=== PATIENT | male | born 1950 | race Caucasian/White ===

== ENCOUNTER 2020-07-19 15:07 | Emergency (ER) | payer SELFPAY ==
[~2020-07-19 15:07] MED LIST: AMLODIPINE BESYL5 MG PO; ANUSOL-HC25 MG PR; ASPIRIN EC81 MG PO; CLOPIDOGREL75 MG PO; FLOMAX 0.4 MG0.4 MG PO; LIPITOR80 MG PO; MOTION SICKNESS25 M1 PO; PROTONIX40 MG PO; STOOL SOFTENER240 MG PO
[2020-08-16] MEDS ORDERED: PLAVIX75 MG PO (10:31)
[2020-08-16] MEDS ORDERED: LIPITOR80 MG PO (10:32)
[2020-08-16] MEDS ORDERED: NORVASC10 MG PO (10:32)
[2020-08-16] MEDS ORDERED: ASPIRIN EC81 MG PO (10:32)
[2020-08-16] MEDS ORDERED: LEVOTHYROXINE50 MC1 PO (10:33)
[2020-08-16] MEDS ORDERED: LOVENOX INJ (10:36)
== END 2020-07-19 17:55 | disposition home or self-care (01) ==
LOC: ER1 15:07
DX: U07.1 COVID-19 (principal); N39.0 Urinary tract infection, site not specified
CPT/HCPCS: 99283

== ENCOUNTER 2020-07-21 08:14 | Emergency (ER) | payer SELFPAY ==
[2020-08-16] MEDS ORDERED: PLAVIX75 MG PO (10:31)
[2020-08-16] MEDS ORDERED: ASPIRIN EC81 MG PO (10:32)
[2020-08-16] MEDS ORDERED: LIPITOR80 MG PO (10:32)
[2020-08-16] MEDS ORDERED: NORVASC10 MG PO (10:32)
[2020-08-16] MEDS ORDERED: LEVOTHYROXINE50 MC1 PO (10:33)
[2020-08-16] MEDS ORDERED: LOVENOX INJ (10:36)
== END 2020-07-21 09:19 | disposition home or self-care (01) ==
LOC: ER1 08:14
DX: R33.9 Retention of urine, unspecified (principal); N21.0 Calculus in bladder
CPT/HCPCS: 51702; 99282

== ENCOUNTER → 2020-08-16 | Outpatient (CLI) | payer SELFPAY ==
[~2020-08-16] MED LIST changes: +LEVOTHYROXINE50 MC1 PO; +LOVENOX INJ; +NORVASC10 MG PO; +PLAVIX75 MG PO
[2020-08-16 11:03] LABS: BUN/CREATININE RATIO 11 (0-10)
== END ==
LOC: OPSV2 09:34
PROVIDERS: Anesthesiology
DX: Z01.818 Encounter for other preprocedural examination (principal); R94.31 Abnormal electrocardiogram [ECG] [EKG]
CPT/HCPCS: 36415; 80048; 93005

== ENCOUNTER → 2020-09-14 | Day surgery (SDC) | payer MEDICAID ==
[2020-09-21 18:09] LABS: CA OXALATE DIHYDRATE 60 % (.); COLOR Brown (.); HYDROXYAPATITE 40 % (.); SIZE 4x3 mm (.); WEIGHT 434 mg (.)
== END | disposition home or self-care (01) ==
LOC: OR 11:46
PROVIDERS: Urology
PROC: 0TCB8ZZ Extirpation of Matter from Bladder, Via Natural or Artificial Opening Endoscopic (ICD-10-PCS; principal; 2020-09-14 14:30)
DX: N21.0 Calculus in bladder (principal); N43.3 Hydrocele, unspecified; R33.9 Retention of urine, unspecified; I10 Essential (primary) hypertension; I25.2 Old myocardial infarction; I25.10 Atherosclerotic heart disease of native coronary artery without angina pectoris; E78.5 Hyperlipidemia, unspecified; F17.220 Nicotine dependence, chewing tobacco, uncomplicated; M19.90 Unspecified osteoarthritis, unspecified site; Z79.02 Long term (current) use of antithrombotics/antiplatelets; Z79.82 Long term (current) use of aspirin; Z79.899 Other long term (current) drug therapy; Z86.73 Personal history of transient ischemic attack (TIA), and cerebral infarction without residual deficits; Z20.822 Contact with and (suspected) exposure to COVID-19
CPT/HCPCS: C1769; C1894; C2617; J1100; J1956; J2001; J2405; J2704; J3010; J7030; J7120

== ENCOUNTER → 2020-10-13 | Outpatient (CLI) | payer MEDICAID | LOC: EXRD 12:55 | DX: I65.23 Occlusion and stenosis of bilateral carotid arteries (principal); I25.10 Atherosclerotic heart disease of native coronary artery without angina pectoris | CPT/HCPCS: 93880 ==